=== PATIENT | female | born 1990 | race Caucasian/White ===

== ENCOUNTER 2017-06-18 15:54 | Inpatient (IN) | payer BC ==
[~2017-06-18] VITALS: Ht 167.6 cm; Wt 68.5 kg
[2017-06-18] MEDS ORDERED: MINASTRIN PO (16:24)
[2017-06-18] MEDS ORDERED: NEXIUM20 MG PO (16:24)
[2017-06-18 17:14] LABS: UA SPECIFIC GRAVITY <=1.005 (1.005-1.035); microscopic required? YES; urine erythrocyte 1+ (NEGATIVE)
[2017-06-18 17:16] LABS: BASOPHIL % 1.3 % (0-2); PLATELET COUNT 314 x10^3mcL (130-400)
[2017-06-18 17:18] LABS: RED CELL DISTRIBUTION WIDTH 14.6 % (11.5-14.5)
[2017-06-18 17:25] LABS: AMPHETAMINE QUAL UR NONE DETECTED (NEG <=1000)
[2017-06-18 17:30] LABS: ALBUMIN 3.4 g/dL (3.4-5.0); ALKALINE PHOSPHATASE 96 U/L (46-116); ALT/SGPT 12 U/L (14-59); AST/SGOT 10 U/L (15-37); BILIRUBIN TOTAL 0.65 mg/dL (0.20-1.00); CALCIUM 8.5 mg/dL (8.5-10.1); CARBON DIOXIDE 16.1 mmol/L (21-32); CHLORIDE SERUM 97 mmol/L (98-107); GFR1 > 60 mL/min; HDL CHOLESTEROL 35 mg/dL (40-60); LIPASE 82 IU/L (73-393); POTASSIUM SERUM 3.8 mmol/L (3.5-5.1); SODIUM SERUM 132 mmol/L (136-145); T4(THYROXINE) 7.1 ug/dL (4.7-13.3); TOTAL PROTEIN, SERUM 7.6 g/dL (6.4-8.2)
[2017-06-18 17:32] LABS: AMYLASE 20 U/L (25-115); CHOLESTEROL 215 mg/dL (<200)
[2017-06-18 17:34] LABS: GLUCOSE SERUM 552 mg/dL (74-106)
[2017-06-18 18:16] LABS: MAGNESIUM 1.8 mg/dL (1.8-2.4); PHOSPHOROUS 3.2 mg/dL (2.5-4.9)
[2017-06-18 18:17] LABS: CHOLESTEROL/HDL RATIO 5.9
[2017-06-18 18:21] LABS: T3 TOTAL 0.8 ng/mL
[2017-06-18 18:27] LABS: FREE T4 1.16 ng/dL (0.76-1.46); FREE THYROXINE INDEX 2.7 ug/dL (1.4-4.5); T4(THYROXINE) 7.6 ug/dL (4.7-13.3)
[2017-06-18 19:00] VITALS: BP 120/76
[2017-06-18 21:27] LABS: CALCIUM 7.3 mg/dL (8.5-10.1); CARBON DIOXIDE 21.4 mmol/L (21-32); CHLORIDE SERUM 108 mmol/L (98-107); CREATININE SERUM 0.6 mg/dL (0.6-1.0); GFR1 > 60 mL/min; GLUCOSE SERUM 155 mg/dL (74-106); MAGNESIUM 1.4 mg/dL (1.8-2.4); PHOSPHOROUS 1.4 mg/dL (2.5-4.9); SODIUM SERUM 142 mmol/L (136-145)
[2017-06-18 21:29] LABS: POTASSIUM SERUM 2.8 mmol/L (3.5-5.1)
[2017-06-18 23:00] VITALS: BP 116/54
[2017-06-19 01:24] LABS: CALCIUM 7.7 mg/dL (8.5-10.1); CARBON DIOXIDE 22.4 mmol/L (21-32); CHLORIDE SERUM 106 mmol/L (98-107); CREATININE SERUM 0.5 mg/dL (0.6-1.0); GFR1 > 60 mL/min; GLUCOSE SERUM 86 mg/dL (74-106); MAGNESIUM 2.1 mg/dL (1.8-2.4); PHOSPHOROUS 2.2 mg/dL (2.5-4.9); SODIUM SERUM 137 mmol/L (136-145)
[2017-06-19 01:37] LABS: POTASSIUM SERUM 2.5 mmol/L (3.5-5.1)
[2017-06-19 03:31] VITALS: BP 104/73
[2017-06-19 05:12] LABS: CARBON DIOXIDE 26.7 mmol/L (21-32); CHLORIDE SERUM 105 mmol/L (98-107); CREATININE SERUM 0.5 mg/dL (0.6-1.0); GFR1 > 60 mL/min; GLUCOSE SERUM 124 mg/dL (74-106); PHOSPHOROUS 2.7 mg/dL (2.5-4.9); POTASSIUM SERUM 3.3 mmol/L (3.5-5.1); SODIUM SERUM 136 mmol/L (136-145)
[2017-06-19 07:10] VITALS: BP 126/55
[2017-06-19 07:15] LABS: PLATELET COUNT 262 x10^3mcL (130-400)
[2017-06-19 07:26] LABS: BASOPHIL % 2.1 % (0-2); RED CELL DISTRIBUTION WIDTH 14.6 % (11.5-14.5)
[2017-06-19 17:38] VITALS: BP 106/68
[2017-06-19 21:32] VITALS: BP 113/60
[2017-06-20 02:35] LABS: PLATELET COUNT 300 x10^3mcL (130-400); RED CELL DISTRIBUTION WIDTH 13.8 % (11.5-14.5)
[2017-06-20 02:37] LABS: BASOPHIL % 2.9 % (0-2)
[2017-06-20 03:00] LABS: CALCIUM 8.1 mg/dL (8.5-10.1); CARBON DIOXIDE 25.7 mmol/L (21-32); CHLORIDE SERUM 105 mmol/L (98-107); CREATININE SERUM 0.4 mg/dL (0.6-1.0); GFR1 > 60 mL/min; GLUCOSE SERUM 127 mg/dL (74-106); MAGNESIUM 1.8 mg/dL (1.8-2.4); PHOSPHOROUS 3.3 mg/dL (2.5-4.9); SODIUM SERUM 139 mmol/L (136-145)
[2017-06-20 03:33] LABS: POTASSIUM SERUM 2.9 mmol/L (3.5-5.1)
[2017-06-20 06:02] VITALS: BP 98/67
[2017-06-20 09:25] VITALS: BP 102/57
[2017-06-20 18:02] VITALS: BP 97/58
[2017-06-20 20:18] VITALS: BP 11/70
[2017-06-21 05:31] VITALS: BP 96/55
[2017-06-21 07:31] LABS: PLATELET COUNT 292 x10^3mcL (130-400)
[2017-06-21 07:32] LABS: CALCIUM 8.2 mg/dL (8.5-10.1); CHLORIDE SERUM 106 mmol/L (98-107); CREATININE SERUM 0.5 mg/dL (0.6-1.0); GFR1 > 60 mL/min; GLUCOSE SERUM 178 mg/dL (74-106); MAGNESIUM 1.6 mg/dL (1.8-2.4); PHOSPHOROUS 4.3 mg/dL (2.5-4.9); POTASSIUM SERUM 3.7 mmol/L (3.5-5.1); SODIUM SERUM 142 mmol/L (136-145)
[2017-06-21 07:53] LABS: RED CELL DISTRIBUTION WIDTH 14.7 % (11.5-14.5)
[2017-06-21 09:26] VITALS: BP 106/59
[2017-06-21] MEDS ORDERED: COUMADIN6 MG PO (11:17)
[2017-06-21 12:56] VITALS: BP 106/59
== END 2017-06-21 16:46 | disposition home or self-care (01) | DRG 637 ==
LOC: ED 15:54 → DU 17:14 → IC 17:14 → DU 06-19 12:49 → MU 06-20 12:54
PROVIDERS: Emergency Medicine; ADMIT Family Medicine
DX: E11.10 Type 2 diabetes mellitus with ketoacidosis without coma (principal); N17.0 Acute kidney failure with tubular necrosis; E87.1 Hypo-osmolality and hyponatremia; I82.441 Acute embolism and thrombosis of right tibial vein; E87.6 Hypokalemia; E83.42 Hypomagnesemia; E78.5 Hyperlipidemia, unspecified; D72.829 Elevated white blood cell count, unspecified; Z53.29 Procedure and treatment not carried out because of patient's decision for other reasons; R63.4 Abnormal weight loss; Z68.24 Body mass index [BMI] 24.0-24.9, adult; Z90.81 Acquired absence of spleen; Z83.3 Family history of diabetes mellitus; Z80.3 Family history of malignant neoplasm of breast
CPT/HCPCS: 36600; 82962; 83880; 84439; 90658; J1644; J1815; J2001; J3475; J3480; J3490; J7030; J7050; Q0092; Q9967